=== PATIENT | male | born 2000 | race African-American/Black ===

== ENCOUNTER 2022-04-25 13:06 | Inpatient (IN) | payer OTHER ==
[~2022-04-25] VITALS: Ht 180.3 cm; Wt 84.1 kg
[2022-04-25] MEDS ORDERED: HYDROCODONE/ACETAMINOPHEN 5-325 MG TABLET PO ONE (13:45)
[2022-04-25 14:03] LABS: BASOPHILS % (AUTO) 1.1 % (0.0-2.0); EOSINOPHILS % (AUTO) 1.4 % (1.0-6.0); HEMATOCRIT 43.6 % (41-53); HEMOGLOBIN 15.1 g/dL (13.5-17.5); LYMPHOCYTES # (AUTO) 1.9 K/uL (1.0-4.8); LYMPHOCYTES % (AUTO) 20.1 % (22.0-44.0); MEAN CORPUSCULAR HEMOGLOBIN 30.4 pg (26.0-34.0); MEAN CORPUSCULAR HGB CONC 34.6 G/dL (31.0-37.0); MEAN CORPUSCULAR VOLUME 88 fL (80-100); MONOCYTES # (AUTO) 0.6 K/uL (0.1-1.0); NEUTROPHILS # (AUTO) 6.7 K/uL (1.8-7.7); NEUTROPHILS % (AUTO) 71.4 % (40.0-70.0); PLATELET COUNT (AUTO) 334 K/uL (150-450); RED BLOOD CELL COUNT(AUTO) 4.95 MIL/uL (4.50-5.90); RED CELL DISTRIBUTION WIDTH 13.7 % (11.5-14.5)
[2022-04-25 14:11] LABS: ANION GAP 3 mmol/L (8-16); CALCIUM, TOTAL 9.8 mg/dL (8.8-10.5); CARBON DIOXIDE 34 mmol/L (22-29); CHLORIDE 100 mmol/L (98-107); CREATININE 1.38 mg/dL (0.60-1.30); GLUCOSE,RANDOM 119 mg/dL (70-110); POTASSIUM 4.1 mmol/L (3.5-5.1); SODIUM SERUM 137 mmol/L (136-145); UREA NITROGEN, BLOOD 13 mg/dL (7-18)
[2022-04-25 14:13] LABS: GLOMERULAR FILTR. RATE CALC > 60 mL/min (>60)
[2022-04-25 14:16] LABS: ALANINE AMINOTRANSFERASE 18 U/L (12-78); ALKALINE PHOSPHATASE 105 U/L (46-116); ASPARTATE AMINOTRANSFERASE 13 U/L (15-37); BILIRUBIN,TOTAL 0.4 mg/dL (0.1-1.0); TOTAL PROTEIN, SERUM 8.3 g/dL (6.4-8.2)
[2022-04-25] MEDS ORDERED: IOHEXOL 350 MG/ML 100 ML VIAL ONE (15:45)
[2022-04-25] MEDS ORDERED: SODIUM CHLORIDE 0.9% 100 ML ONE (15:45)
[2022-04-25 17:06] LABS: APPEARANCE,URINE CLEAR (CLEAR); BILIRUBIN,URINE NEGATIVE (NEGATIVE); GLUCOSE, URINE (UA) NEGATIVE (NEGATIVE); KETONES,URINE NEGATIVE (NEGATIVE); LEUKOCYTE ESTERASE ,URINE TRACE (NEGATIVE); NITRATE,URINE NEGATIVE (NEGATIVE); OCCULT BLOOD,URINE NEGATIVE (NEGATIVE); PH,URINE 6.5 (5.0-8.0); PROTEIN,URINE TRACE mg/dL (NEGATIVE); UROBILINOGEN,URINE <=1.0 mg/dL (<=1.0)
[2022-04-25 17:17] LABS: BACTERIA,URINE Rare /HPF (None Seen); RBC,URINE 0-2 /HPF (0-2); SQUAMOUS EPITHELIAL CELL,UR Rare /LPF (None Seen)
[2022-04-25 17:51] LABS: COVID AG,FIA SOURCE NASAL SWAB
[2022-04-25 18:08] LABS: LIPASE 74 U/L (73-393)
[2022-04-25] MEDS ORDERED: ONDANSETRON HCL 4 MG/2 ML VIAL IVP PRN (18:15)
[2022-04-25] MEDS ORDERED: SODIUM CHLORIDE 0.9% 1,000 ML IV ONE (18:15)
[2022-04-25] MEDS ORDERED: ACETAMINOPHEN 325 MG TABLET PO PRN (18:15)
[2022-04-25] MEDS ORDERED: MORPHINE SULFATE 2 MG/ML SYRINGE IVP PRN (18:15)
[2022-04-25] MEDS ORDERED: CefTRIAXone 1 GM/DEXTROSE 50 ML IV ONE (18:15)
[2022-04-25 19:09] LABS: HCG,QUANTITATIVE < 1 mIU/mL (0-6)
[2022-04-25] MEDS: DOCUSATE SODIUM 100 MG CAPSULE PO SCH (22:26)
[2022-04-25 22:44] VITALS: BP 140/73
[2022-04-26 04:59] VITALS: BP 124/67
[2022-04-26 08:21] VITALS: BP 146/85
[2022-04-26] MEDS: DOCUSATE SODIUM 100 MG CAPSULE PO SCH (09:00)
[2022-04-26] MEDS ORDERED: DOXY-354 PO (09:21)
[2022-04-26] MEDS ORDERED: CefTRIAXone 1 GM/DEXTROSE 50 ML IV SCH (18:00)
== END 2022-04-26 17:45 | disposition home or self-care (01) | DRG 501 ==
LOC: EMS 13:07 → 6S 19:44
PROVIDERS: ADMIT Internal Medicine; ATTEND Internal Medicine
DX: N50.9 Disorder of male genital organs, unspecified (principal); F17.210 Nicotine dependence, cigarettes, uncomplicated; K40.90 Unilateral inguinal hernia, without obstruction or gangrene, not specified as recurrent; Z20.822 Contact with and (suspected) exposure to COVID-19; Q55.22 Retractile testis; N45.1 Epididymitis
CPT/HCPCS: 74177; 76870; 80053; 81001; 82105; 83690; 84702; 85025; 87086; 99285; G0378; J0696; J7030; J7050; Q9967